=== PATIENT | male | born 1950 | race Hispanic/Latino ===

== ENCOUNTER 2018-10-05 08:52 | Inpatient (IN) | payer MEDICARE, SELFPAY, OTHER | END 2018-10-12 17:40 | LOC: 2CV 10-07 07:46 → 2AH 10-09 15:24 → 2CH 10-08 12:01 → 2BH 10-06 19:04 → DAH 08:52 → 4CH 08:53 → 2AH 17:55 | PROC: B2151ZZ Fluoroscopy of Left Heart using Low Osmolar Contrast (ICD-10-PCS; principal; 2018-10-07 13:11) | PROC: 4A023N7 Measurement of Cardiac Sampling and Pressure, Left Heart, Percutaneous Approach (ICD-10-PCS; 2018-10-07 13:11) | PROC: B3121ZZ Fluoroscopy of Left Subclavian Artery using Low Osmolar Contrast (ICD-10-PCS; 2018-10-07 13:11) | PROC: 021009W Bypass Coronary Artery, One Artery from Aorta with Autologous Venous Tissue, Open Approach (ICD-10-PCS; 2018-10-07 13:11) | PROC: 02100Z9 Bypass Coronary Artery, One Artery from Left Internal Mammary, Open Approach (ICD-10-PCS; 2018-10-07 13:11) | DX: I25.110 Atherosclerotic heart disease of native coronary artery with unstable angina pectoris (principal); I50.33 Acute on chronic diastolic (congestive) heart failure; D62 Acute posthemorrhagic anemia; I13.0 Hypertensive heart and chronic kidney disease with heart failure and stage 1 through stage 4 chronic kidney disease, or unspecified chronic kidney disease; F17.200 Nicotine dependence, unspecified, uncomplicated ==

== ENCOUNTER → 2018-10-25 | Outpatient (CLI) | payer MEDICARE ==
[~2018-10-25] MED LIST: ASPI-1181 PO; CLOP75TA14 PO; CYCL5TAB PO; DULO30CA51 PO; GLIP2.5T2 PO; LOSA100T58 PO; MELO-106 PO; METO200T49 PO; NIFE30TA91 PO; VITA1CAP85 PO
== END | disposition home or self-care (01) ==
LOC: SHCH 12:21
PROVIDERS: ATTEND Internal Medicine Cardiovascular Disease
DX: M79.605 Pain in left leg (principal)
CPT/HCPCS: 93970

== ENCOUNTER → 2019-05-24 | Outpatient (CLI) | payer MEDICARE ==
[~2019-05-24] MED LIST changes: -DULO30CA51 PO; +DULO30CA52 PO
== END | disposition home or self-care (01) ==
LOC: SHCH 07:40
PROVIDERS: ATTEND Internal Medicine Cardiovascular Disease
DX: I73.9 Peripheral vascular disease, unspecified (principal); I71.4 Abdominal aortic aneurysm, without rupture
CPT/HCPCS: 93925; 93978

== ENCOUNTER 2022-07-25 13:00 | Observation (INO) | payer MEDICARE ==
[~2022-07-25] VITALS: Ht 177.8 cm; Wt 84.8 kg
[2022-07-25 10:36] LABS: BASOPHILS % (AUTO) 0.4 % (0.0-5.0); EOSINOPHILS % (AUTO) 1.4 % (0.0-8.0); HEMATOCRIT 45.3 % (42-54); LYMPHOCYTES % (AUTO) 20.1 % (21.0-51.0); MEAN CORPUSCULAR HEMOGLOBIN 28.5 pg (27.0-33.0); MEAN CORPUSCULAR HGB CONC 32.7 g/dL (32.0-36.0); MEAN CORPUSCULAR VOLUME 87.3 fL (79-99); MONOCYTES % (AUTO) 9.1 % (3.0-13.0); NEUTROPHILS % (AUTO) 68.6 % (40.0-77.0); PLATELET COUNT (AUTO) 475 K/uL (130-400); RED BLOOD CELL COUNT(AUTO) 5.19 MIL/uL (4.50-6.20); RED CELL DISTRIBUTION WIDTH 14.6 % (11.0-15.5); WHITE BLOOD COUNT (AUTO) 13.8 K/uL (4.8-10.8)
[2022-07-25 10:50] LABS: CREATININE 0.9 mg/dL (0.5-1.5); POTASSIUM 4.9 mmol/L (3.5-5.1)
[~2022-07-25 13:00] MED LIST changes: -ASPI-1181 PO; +CLOP-31 PO; -CLOP75TA14 PO; -CYCL5TAB PO; -DULO30CA52 PO; -GLIP2.5T2 PO; -MELO-106 PO; -METO200T49 PO; -NIFE30TA91 PO; -VITA1CAP85 PO
[2022-07-26 10:09] VITALS: BP 137/72
[2022-07-26] MEDS ORDERED: DULO60CA64 PO (10:49)
[2022-07-26] MEDS ORDERED: Metoprolol Succinate PO (10:49)
[2022-07-26] MEDS ORDERED: ASPI-1026 PO (10:49)
[2022-07-26] MEDS ORDERED: NIFE60TA81 PO (10:49)
[2022-07-26] MEDS ORDERED: ALLO100T PO (10:49)
[2022-07-26] MEDS ORDERED: ATOR40TA69 PO (10:49)
[2022-07-26] MEDS ORDERED: MIRT7.5T11 PO (10:49)
[2022-07-26] MEDS ORDERED: GLIP5TAB97 PO (10:49)
[2022-07-27] VITALS (22 sets, daily range): BP systolic 119–152; BP diastolic 54–77
[2022-07-27] MEDS: CEFAZOLIN SODIUM 1 GM VIAL IVP SCH ×2 (06:00→11:00)
[2022-07-27] MEDS ORDERED: 0.9%NACL 1000ML 1,000 ML IV ONE (08:13)
[2022-07-27] MEDS ORDERED: BUPIVACAINE/EPI/PF 0.25% 10ML VIAL IJ ONE (08:23)
[2022-07-27] MEDS ORDERED: THROMBIN-JMI 20000 UNIT KIT TP ONE (08:23)
[2022-07-27] MEDS ORDERED: CEFAZOLIN SODIUM 1 GM VIAL ONE (08:23)
[2022-07-27] MEDS ORDERED: LIDOCAINE PF 100MG/5ML (2%) SYRINGE 5ML ONE (08:58)
[2022-07-27] MEDS ORDERED: SUCCINYLCHOLINE CHLORIDE 20 MG/ML 10 ML VIAL ONE (08:58)
[2022-07-27] MEDS ORDERED: DEXAMETHASONE SOD PHOSPHATE 10MG/ML 1ML VIAL ONE ×2 (08:59→10:39)
[2022-07-27] MEDS ORDERED: ONDANSETRON 4MG INJ ONE ×2 (08:59→13:20)
[2022-07-27] MEDS ORDERED: NEOSTIGMINE 5MG/5ML SYR IV ONE (08:59)
[2022-07-27] MEDS ORDERED: MIDAZOLAM HCL 1 MG/ML 2ML VIAL ONE (08:59)
[2022-07-27] MEDS ORDERED: GLYCOPYRROLATE 1 MG/5 ML SYRINGE ONE (08:59)
[2022-07-27] MEDS ORDERED: PROPOFOL 10 MG/ML 20ML VIAL IV ONE (08:59)
[2022-07-27] MEDS ORDERED: FENTANYL CITRATE PF 50 MCG/1 ML 2ML VIAL ONE ×2 (09:00→11:16)
[2022-07-27] MEDS ORDERED: ROCURONIUM 10MG/1ML SYR 10 MG/ML ML ONE (09:00)
[2022-07-27 09:34] LABS: HEMATOCRIT 41.6 % (42-54); MEAN CORPUSCULAR HEMOGLOBIN 28.9 pg (27.0-33.0); MEAN CORPUSCULAR HGB CONC 33.2 g/dL (32.0-36.0); RED BLOOD CELL COUNT(AUTO) 4.78 MIL/uL (4.50-6.20); RED CELL DISTRIBUTION WIDTH 14.6 % (11.0-15.5); WHITE BLOOD COUNT (AUTO) 11.1 K/uL (4.8-10.8)
[2022-07-27] MEDS ORDERED: MEPERIDINE-PF 25 MG/ML SYG ONE ×2 (13:21→13:53)
[2022-07-27] MEDS ORDERED: PROMETHAZINE HCL 25 MG/ML 1ML AMPULE IM PRN (13:30)
[2022-07-27] MEDS: LACTATED RINGERS 1000ML 1,000 ML IV SCH ×2 (13:30→23:03)
[2022-07-27] MEDS ORDERED: 0.9%NACL 10ML VIAL IVP PRN (13:30)
[2022-07-27] MEDS ORDERED: CEFAZOLIN SODIUM 2 GM VIAL IVP SCH (13:30)
[2022-07-27] MEDS ORDERED: MORPHINE 2 MG SYG IVP PRN (13:30)
[2022-07-27] MEDS ORDERED: DEXAMETHASONE SOD PHOSPHATE 4 MG/ML 1ML VIAL IVP SCH (13:30)
[2022-07-27] MEDS: DEXAMETHASONE SOD PHOSPHATE 4 MG/ML 1ML VIAL IVP SCH ×2 (18:03→23:03)
[2022-07-27] MEDS: HYDROCODONE/ACETAMINOPHEN 5/325 MG TAB PO PRN ×2 (18:05→22:35)
[2022-07-27] MEDS ORDERED: CEFAZOLIN SODIUM 2 GM VIAL IVP ONE (19:00)
[2022-07-27] MEDS: GLIPIZIDE XL 5MG TAB PO SCH (19:58)
[2022-07-27] MEDS: METOPROLOL SUCCINATE 50 MG TAB.SR.24H PO SCH (19:59)
[2022-07-27] MEDS ORDERED: MIRTAZAPINE 15 MG TABLET PO SCH (21:00)
[2022-07-27] MEDS ORDERED: ASPIRIN 325MG TAB PO SCH (21:00)
[2022-07-28 00:04] VITALS: BP 152/72
[2022-07-28 04:19] VITALS: BP 151/81
[2022-07-28] MEDS: DEXAMETHASONE SOD PHOSPHATE 4 MG/ML 1ML VIAL IVP SCH (06:10)
[2022-07-28 07:30] VITALS: BP 157/81
[2022-07-28] MEDS ORDERED: ALLOPURINOL 100 MG TABLET PO SCH (09:00)
[2022-07-28] MEDS ORDERED: LOSARTAN 100 MG TABLET PO SCH (09:00)
[2022-07-28] MEDS ORDERED: DULOXETINE HCL 30 MG CAP PO SCH (09:00)
[2022-07-28] MEDS ORDERED: NIFEDIPINE ER 30 MG TAB PO SCH (09:00)
[2022-07-28] MEDS ORDERED: ATORVASTATIN 40 MG TABLET PO SCH (09:00)
[2022-07-28] MEDS: GLIPIZIDE XL 5MG TAB PO SCH (09:02)
[2022-07-28] MEDS: METOPROLOL SUCCINATE 50 MG TAB.SR.24H PO SCH (09:05)
[2022-07-28] MEDS: HYDROCODONE/ACETAMINOPHEN 5/325 MG TAB PO PRN (09:05)
== END 2022-07-28 10:15 | disposition home or self-care (01) ==
LOC: INTOOBSV 07-27 08:48 → DAHIP 07-27 08:48 → OBSVTOIN 07-27 08:48 → EDSTATUS 07-27 13:00 → 4DH 07-27 14:28
PROVIDERS: ADMIT Neurological Surgery; ATTEND Neurological Surgery
DX: M25.78 Osteophyte, vertebrae (principal); Z20.822 Contact with and (suspected) exposure to COVID-19; M89.9 Disorder of bone, unspecified; I25.10 Atherosclerotic heart disease of native coronary artery without angina pectoris; I10 Essential (primary) hypertension; E11.9 Type 2 diabetes mellitus without complications; I49.3 Ventricular premature depolarization; K22.2 Esophageal obstruction; Z95.1 Presence of aortocoronary bypass graft; Z86.73 Personal history of transient ischemic attack (TIA), and cerebral infarction without residual deficits; Z87.891 Personal history of nicotine dependence; Z79.899 Other long term (current) drug therapy
CPT/HCPCS: 80048; 85025; 87426; 36415 ×2; 71045; 22110; 22116 ×2; 96374; 96376 ×2; 96375; 85027; 82948 ×4; 72020; J1100 ×6; A6260; G0378 ×21; A4663; A4344; A4649 ×3; J7120; J3010 ×2; J0690 ×3; J3490 ×2; J2710; J0330; J7030; J2001; J2250; J2704; J2405 ×2; J2175 ×2; A6219; A4215; A4223; A4222; A4221; A4600